=== PATIENT | female | born 1990 | race American Indian/Alaskan Native ===

== ENCOUNTER 2017-06-13 01:35 | Emergency (ER) | payer OTHER ==
[2017-06-13 03:45] LABS: Hematocrit 41.5 % (30.3-42.9); Hemoglobin 14.2 gm/dl (10.1-14.3); Mean Corpuscular HGB Conc 34 % (30-34); Mean Corpuscular Hemoglobin 30 pg (28-32); Mean Corpuscular Volume 89 fl (79-97); Platelet Count 194 K/mm3 (140-440); Red Blood Count 4.67 M/mm3 (3.65-5.03); Red Cell Distribution Width 13.4 % (13.2-15.2); White Blood Count 5.7 K/mm3 (4.5-11.0)
[2017-06-13 04:04] LABS: Anion Gap 17 mmol/L; BUN/Creatinine Ratio 17; Blood Urea Nitrogen 12 mg/dL (7-17); Calcium 8.8 mg/dL (8.4-10.2); Carbon Dioxide 27 mmol/L (22-30); Chloride 102.7 mmol/L (98-107); Glucose 93 mg/dL (65-100); Potassium 4.3 mmol/L (3.6-5.0); Sodium 142 mmol/L (137-145)
[2017-06-13] MEDS ORDERED: NORCO 5/325 PO ONE (04:16)
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
--- NOTE | 2017-06-13 07:04 | XRay Report ---
FINAL REPORT EXAM: XR SPINE THORACIC 3V HISTORY: Upper back pain COMPARISONS: Chest radiograph of the same date FINDINGS: Three views thoracic spine Thoracic kyphosis is within normal limits. Vertebral body heights intervertebral disc spaces are preserved. No fractures. Incomplete evaluation of the chest is unremarkable. IMPRESSION: Unremarkable thoracic spine radiographs.
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
[2017-06-13 08:24] VITALS: BP 115/67
== END 2017-06-13 08:23 | disposition home or self-care (01) ==
LOC: ED 01:35
DX: S09.8XXA Other specified injuries of head, initial encounter (principal); M54.9 Dorsalgia, unspecified; M54.2 Cervicalgia; E04.1 Nontoxic single thyroid nodule; V49.59XA Passenger injured in collision with other motor vehicles in traffic accident, initial encounter; Y93.89 Activity, other specified; Y92.89 Other specified places as the place of occurrence of the external cause; Y99.8 Other external cause status
CPT/HCPCS: 36415; 70450; 70486; 71010; 72072; 72100; 72125; 72170; 80048; 84703; 85027

== ENCOUNTER 2018-10-27 11:12 | Emergency (ER) | payer MEDICAID, OTHER ==
--- NOTE | 2018-10-27 11:45 | Emergency Department Report ---
Blank Doc - Documentation Documentation: 28 y/o female comes in for Nausea and vomiting with headache. Has not taking anything for pain.
[2018-10-27] MEDS ORDERED: NACL 0.9% 1000 ML 1,000 ML IV ONE (12:06)
[2018-10-27] MEDS ORDERED: ZOFRAN IV ONE (12:06)
[2018-10-27 12:24] LABS: HCG Qualitative,Urine Negative (Negative)
[2018-10-27 12:29] LABS: Bilirubin,Urine NEG (Negative); Blood,Urine SM (Negative); Color,Urine Yellow (Yellow); Mucus,Urine FEW /HPF; Protein,Urine <15 mg/dL mg/dL (Negative); Urobilinogen,Urine < 2.0 mg/dL (<2.0)
[2018-10-27 12:29] LABS: Hematocrit 45.1 % (30.3-42.9); Hemoglobin 15.2 gm/dl (10.1-14.3); Mean Corpuscular HGB Conc 34 % (30-34); Mean Corpuscular Volume 92 fl (79-97); Platelet Count 221 K/mm3 (140-440); Red Blood Count 4.91 M/mm3 (3.65-5.03); Red Cell Distribution Width 13.2 % (13.2-15.2)
[2018-10-27] MEDS ORDERED: BACTRIM DS PO ONE (12:39)
--- NOTE | 2018-10-27 12:40 | Emergency Department Report ---
Vomiting/Diarrhea - HPI Chief Complaint: Nausea/Vomiting/Diarrhea Stated Complaint: HEADACHE/DIARRHEA/NAUSEA/DIZZINESS Time Seen by Provider: 10/27/18 11:52 Duration: 2 Days Severity: mild Nausea/Vomiting Severity: Mild Diarrhea Severity: Mild Pain Severity: Mild Symptoms: Yes Watery Diarrhea, Yes Able to Tolerate Fluids, No Bloody diarrhea, No Fever, No Recent Unusual Foods, No Recent Untreated Water, No Recent use of Antibiotics, No Family w/ Similar Symptoms, No Contacts w/ Similar Symptoms, No Rash, No Hematuria, No Recent URI Symptoms Other History: She is a 28-year-old female comes to the ER today complaining of nausea and diarrhea. She states that she's had 4 loose BMs since early this morning. She also states that she's had a headache and is dizzy upon standing. She denies vomiting but states that she is nauseated. Patient's last menstrual cycle was August 27. PMH HPLD. She is on no medications routinely. Previous surgeries include reopening of her fallopian tubes. She denies alcohol drugs or tobacco. On admission [facility] the provider did her vital signs on lying her blood pressure was 106/64 with a heart rate of 83. On standing blood pressure 102/67 with a heart rate jumping to 121 associated with dizziness ED Review of Systems ROS: Stated complaint: HEADACHE/DIARRHEA/NAUSEA/DIZZINESS Other details as noted in HPI Comment: All other systems reviewed and negative ED Past Medical Hx - Past Medical History Previous Medical History?: Yes Additional medical history: HIGH CHOLESTROL - Surgical History Past Surgical History?: No Additional Surgical History: TUBAL LIGATION REVERSAL 2011. - Family History Family history: no significant - Social History Smoking Status: Never Smoker Substance Use Type: None - Medications Home Medications: Home Medications Medication Instructions Recorded Confirmed Last Taken Type Ondansetron [Zofran Odt] 4 mg PO Q8HR PRN #10 tab.rapdis 10/27/18 Unknown Rx Sulfamethoxazole/Trimethoprim 1 each PO BID #10 tablet 10/27/18 Unknown Rx [Bactrim DS TAB] Vomiting Diarrhea Exam - Exam General: Vital signs noted. No distress. Alert and acting appropriately. HEENT: Yes Moist Mucous Membranes, No Pharyngeal Erythema, No Pharyngeal Exudates, No Rhinorrhea, No Conjuctival Injection, No Frontal Tenderness, No Maxillary Tenderness Neck: No Adenopathy, No Rigidity Lungs: Yes Clear Lung Sounds, Yes Good Air Exchange, No Wheezes, No Stridor, No Cough, No Nasal Flaring, No Retractions, No Use of Accessory Muscles Heart exam: Regular: Yes, Murmur: No, Tachycardia: Yes Abdomen: Tenderness: No, Peritoneal Signs: No, Distention: No, Hyperactive Bowel sounds: No Skin exam: Rash: No, Edema: No, Normal turgor: Yes Neurologic: Alert and oriented, no deficits. Musculoskeletal: Unremarkable. ED Course Vital Signs 10/27/18 11:36 Temperature 99.3 F Pulse Rate 80 Respiratory 16 Rate Blood Pressure 112/51 O2 Sat by Pulse 99 Oximetry ED Medical Decision Making - Lab Data Result diagrams: 10/27/18 12:15 10/27/18 12:15 - Medical Decision Making Labs 10/27/18 10/27/18 10/27/18 11:53 12:15 12:15 WBC 6.2 RBC 4.91 Hgb 15.2 H Hct 45.1 H MCV 92 MCH 31 MCHC 34 RDW 13.2 Plt Count 221 Sodium 139 Potassium 4.4 Chloride 102.1 Carbon Dioxide 28 Anion Gap 13 BUN 13 Creatinine 0.9 Estimated GFR > 60 BUN/Creatinine Ratio 14 Glucose 95 Calcium 9.6 Total Bilirubin 0.50 AST 16 ALT 14 Alkaline Phosphatase 59 Total Protein 7.4 Albumin 4.2 Albumin/Globulin Ratio 1.3 Lipase 30 Urine Color Yellow Urine Turbidity Cloudy Urine pH 5.0 Ur Specific [place] 1.026 Urine Protein <15 mg/dl Urine Glucose (UA) Neg Urine Ketones Neg Urine Blood Sm Urine Nitrite Neg Ur Reducing Substances Not Reportable Urine Bilirubin Neg Urine Ictotest Not Reportable Urine Urobilinogen < 2.0 Ur Leukocyte Esterase Mod Urine WBC (Auto) 4.0 Urine RBC (Auto) 5.0 U Epithel Cells (Auto) 9.0 Urine Mucus Few Urine HCG, Qual Negative Vital Signs 10/27/18 11:36 Temperature 99.3 F Pulse Rate 80 Respiratory 16 Rate Blood Pressure 112/51 O2 Sat by Pulse 99 Oximetry Patient was medicated with Zofran and given a liter of normal saline. At that point she stated she started feeling better. She was no longer orthostatic and had no dizziness. Discussed with patient the results of her urine study. Patient was given antibiotics here and will be discharged home with antibiotics for UTI. She's been instructed to follow up with her primary care [employer] to be sure the infection goes away. Patient informed that white blood cell count is normal and is negative. Critical care attestation.: If time is entered above; I have spent that time in minutes in the direct care of this critically ill patient, excluding procedure time. ED Disposition Clinical Impression: UTI (urinary tract infection) Disposition: TO HOME OR SELFCARE Is pt being admited?: No Does the pt Need Aspirin: No Condition: Stable Instructions: Urinary Tract Infection in Women (ED), Gastroenteritis (ED) Additional Instructions: DIET TOLERATED MEDS ORDERED TODAY IN ER FOLLOW INSTRUCTIONS ON THE BOTTLE FOLLOW UP PCP WITHIN 48 HOURS TO ENSURE YOU ARE GETTING BETTER ACTIVITY TOLERATED MOTRIN OR TYLENOL FOR PAIN OR FEVER RETURN TO THE ER FOR WORSENING SYMPTOMS NOT RELIEVED BY YOUR MEDICATIONS. Prescriptions: Sulfamethoxazole/Trimethoprim [Bactrim DS TAB] 1 each PO BID #10 tablet Ondansetron [Zofran Odt] 4 mg PO Q8HR PRN #10 tab.rapdis PRN Reason: Vomiting Referrals: PRIMARY CARE, [Primary Care Provider] - 3-5 Days [facility] [Outside] - 3-5 Days Forms: Work/School Release Form(ED) Time of Disposition: 13:20
[2018-10-27 12:49] LABS: Alanine Aminotransferase 14 units/L (7-56); Albumin 4.2 g/dL (3.9-5); BUN/Creatinine Ratio 14; Blood Urea Nitrogen 13 mg/dL (7-17); Calcium 9.6 mg/dL (8.4-10.2); Hemolysis Index 3
[2018-10-27 13:43] VITALS: BP 111/65
== END 2018-10-27 13:44 | disposition home or self-care (01) ==
LOC: ED 11:12
DX: N39.0 Urinary tract infection, site not specified (principal)
CPT/HCPCS: 36415; 80053; 81001; 81025; 83690; 85027; 96361; 96374; 99283; J2405; J7030

== ENCOUNTER 2018-12-07 23:07 | Emergency (ER) | payer MEDICAID ==
[2018-12-07 23:25] VITALS: BP 118/72
[2018-12-08 00:39] LABS: Bilirubin,Urine NEG (Negative); Blood,Urine NEG (Negative); Color,Urine Yellow (Yellow); Mucus,Urine FEW /HPF; Protein,Urine <15 mg/dL mg/dL (Negative); Urobilinogen,Urine < 2.0 mg/dL (<2.0)
[2018-12-08 01:02] LABS: HCG Qualitative,Urine Negative (Negative)
== END 2018-12-08 02:30 | disposition left against medical advice (07) ==
LOC: ED 23:07
DX: M54.9 Dorsalgia, unspecified (principal); Z53.21 Procedure and treatment not carried out due to patient leaving prior to being seen by health care provider
CPT/HCPCS: 81001; 81025

== ENCOUNTER 2021-09-15 12:32 | Emergency (ER) | payer MEDICAID ==
[2021-09-15 13:14] VITALS: BP 140/92
--- NOTE | 2021-09-15 15:35 | Emergency Department Report ---
Suture/Staple Removal - [facility] Chief Complaint: Laceration/Recheck/Suture Stated Complaint: REMOVE SUTURES Time Seen by Provider: 09/15/21 15:34 When Sutures or Marky Placed: >14 Days Ago Wound Location: abdomen , had sleeve surgery in [place] ED Review of Systems ROS: Stated complaint: REMOVE SUTURES Other details as noted in HPI ED Past Medical Hx - Past Medical History Previous Medical History?: No Additional medical history: HIGH CHOLESTROL - Surgical History Additional Surgical History: TUBAL LIGATION REVERSAL 2011. - Social History Smoking Status: Never Smoker Substance Use Type: None - Medications Home Medications: Home Medications Medication Instructions Recorded Confirmed Last Taken Type Ondansetron [Zofran Odt] 4 mg PO Q8HR PRN #10 tab.rapdis 10/27/18 Unknown Rx Sulfamethoxazole/Trimethoprim 1 each PO BID #10 tablet 10/27/18 Unknown Rx [Bactrim DS TAB] Suture Removal Exam - Exam General: Vital signs noted. No distress. Alert and acting appropriately. Other Systems: All other systems reviewed and are unremarkable. ED Course Vital Signs 09/15/21 13:13 Temperature 98.3 F Pulse Rate 60 Respiratory 16 Rate Blood Pressure 140/92 O2 Sat by Pulse 96 Oximetry Critical care attestation.: If time is entered above; I have spent that time in minutes in the direct care of this critically ill patient, excluding procedure time. ED Disposition Clinical Impression: Encounter for removal of sutures Disposition: 01 HOME / SELF CARE / HOMELESS Is pt being admited?: No Does the pt Need Aspirin: No Condition: Stable Referrals: PRIMARY CARE, [Primary Care Provider] - 3-5 Days
== END 2021-09-15 16:08 | disposition home or self-care (01) ==
LOC: ED 12:32
DX: S31.119D Laceration without foreign body of abdominal wall, unspecified quadrant without penetration into peritoneal cavity, subsequent encounter (principal); X58.XXXD Exposure to other specified factors, subsequent encounter

== ENCOUNTER 2021-09-19 16:29 | Emergency (ER) | payer MEDICAID ==
[2021-09-19 19:15] VITALS: BP 132/83
--- NOTE | 2021-09-19 19:45 | XRay Report ---
Left hand 3 views INDICATION: Injury FINDINGS: There is a fracture through the middle phalanx of the ring finger which extends to the midp ortion towards the DIP joint. MCP joints appear intact. Signer Name: Manuel Rivers MD Signed: 09/19/2021 7:41 PM Workstation Name: [id number]
== END 2021-09-19 23:11 | disposition left against medical advice (07) ==
LOC: ED 16:29
DX: R22.32 Localized swelling, mass and lump, left upper limb (principal); Z53.21 Procedure and treatment not carried out due to patient leaving prior to being seen by health care provider